=== PATIENT | female | born 1975 | race Caucasian/White ===

== ENCOUNTER → 2017-09-18 | Outpatient (CLI) | payer OTHER ==
[2017-09-18 15:35] LABS: BILIRUBIN,URINE NEGATIVE (NEG); CLARITY,URINE CLEAR; COLOR,URINE YELLOW; GLUCOSE,URINE NEGATIVE (NEG); NITRITE,URINE NEGATIVE (NEG); PROTEIN,URINE NEGATIVE (NEG-TRACE); UROBILINOGEN,URINE 0.2 mg/dL (0.2 mg/dL)
[2017-09-18 15:48] LABS: ADD MAN DIFF? NO; BACTERIA,URINE 0 /HPF (0-FEW); RBC,URINE 0 /HPF (0-2); SQUAMOUS EPITHELIAL CELL,UR FEW /LPF; WBC,URINE 0 /HPF (0-4)
[2017-09-18 15:51] LABS: BASO % 0 % (0-3); EOS # 0.1 x10^3/uL (0.0-0.7); EOS % 3 % (0-3); HEMATOCRIT 39.8 % (36.0-47.0); HEMOGLOBIN 13.1 g/dL (12.0-15.5); LYMPH # 1.4 x10^3/uL (1.0-4.8); LYMPH % 28 % (24-48); MEAN CORPUSCULAR HEMOGLOBIN 30 pg (25-35); MEAN CORPUSCULAR HGB CONC 33 g/dL (31-37); MEAN CORPUSCULAR VOLUME 92 fL (79-100); MONO # 0.3 x10^3/uL (0.0-1.1); MONO % 5 % (0-9); NEUT # 3.3 x10^3uL (1.8-7.7); NEUT % 64 % (31-73); PLATELET COUNT 301 x10^3/uL (140-400); RED BLOOD COUNT 4.33 x10^6/uL (3.50-5.40); RED CELL DISTRIBUTION WIDTH 14.4 % (11.5-14.5); WHITE BLOOD COUNT 5.1 x10^3/uL (4.0-11.0)
[2017-09-18 16:13] LABS: ALBUMIN 3.9 g/dL (3.4-5.0); ALK PHOS 63 U/L (46-116); ALT (SGPT) 24 U/L (14-59); ANION GAP 10 (6-14); AST (SGOT) 21 U/L (15-37); BLOOD UREA NITROGEN 18 mg/dL (7-20); BUN/CREATININE RATIO 26 (6-20); CALCIUM 9.3 mg/dL (8.5-10.1); CARBON DIOXIDE 27 mmol/L (21-32); CHLORIDE 103 mmol/L (98-107); CREATININE 0.7 mg/dL (0.6-1.0); GFR 92.7; GLUCOSE 88 mg/dL (70-99); POTASSIUM 4.4 mmol/L (3.5-5.1); SODIUM 140 mmol/L (136-145); TOTAL BILIRUBIN 0.3 mg/dL (0.2-1.0); TOTAL PROTEIN 7.7 g/dL (6.4-8.2)
== END | disposition home or self-care (01) ==
LOC: SURGPAT 14:39
DX: Z01.818 Encounter for other preprocedural examination (principal)
CPT/HCPCS: 36415; 80053; 81001; 85025

== ENCOUNTER 2017-09-26 06:16 | Observation (INO) | payer OTHER ==
[~2017-09-26 06:16] MED LIST: ESTROGENS, CONJ VAGINAL CREAM 30GM TUBE.; METHYLENE BLUE 1% 10 ML VIAL.
[2017-09-26] MEDS ORDERED: ONDANSETRON PF 4 MG/2 ML VIAL. IV ×2 (07:00→09:45)
[2017-09-26] MEDS ORDERED: HYDROmorphone 2 MG/ML VIAL IV (07:00)
[2017-09-26] MEDS ORDERED: MORPHINE SULFATE 4 MG/ML DISP.SYRIN. IV (07:00)
[2017-09-26] MEDS ORDERED: LIDOCAINE 1% PF 2 ML VIAL. ID (07:00)
[2017-09-26] MEDS ORDERED: fentaNYL PF VIAL 100 MCG/2 ML VIAL IV (07:00)
[2017-09-26] MEDS ORDERED: PROCHLORPERAZINE 10 MG/2 ML VIAL. IV (07:00)
[2017-09-26 07:05] LABS: NEG OBC UR NEG; POS OBC UR POS; U PREG PATIENT NEGATIVE (NEG)
[2017-09-26] MEDS: IV RINGERS,LACTATED 1000ML 1,000 ML IV (07:05)
[2017-09-26] MEDS: SCOPOLAMINE 1.5MG PATCH. TD (07:06)
[2017-09-26] MEDS ORDERED: fentaNYL PF VIAL 100 MCG/2 ML VIAL ×2 (07:11→09:12)
[2017-09-26] MEDS ORDERED: GLYCOPYRROLATE 1 MG/5 ML VIAL. (07:11)
[2017-09-26] MEDS ORDERED: KETAMINE HCL 500 MG/10 ML VIAL. (07:11)
[2017-09-26] MEDS ORDERED: ROCURONIUM 100 MG/10 ML VIAL. (07:11)
[2017-09-26] MEDS ORDERED: NEOSTIGMINE 10 MG/10 ML VIAL. (07:11)
[2017-09-26] MEDS ORDERED: MIDAZOLAM HCL/PF 2 MG/2 ML VIAL. (07:12)
[2017-09-26] MEDS ORDERED: DEXAMETHASONE SOD PHOS 20 MG/5 ML VIAL. (07:13)
[2017-09-26] MEDS ORDERED: ONDANSETRON PF 4 MG/2 ML VIAL. (07:13)
[2017-09-26] MEDS ORDERED: diphenhydrAMINE 50 MG/ML VIAL (07:13)
[2017-09-26] MEDS ORDERED: PROPOFOL 20 ML IV (07:13)
[2017-09-26] MEDS ORDERED: PHENYLEPHRINE 10 MG/ML VIAL. (07:55)
[2017-09-26] MEDS ORDERED: ISOFLURANE 16 TO 30 MINUTES. IH ×2 (07:57)
[2017-09-26] MEDS ORDERED: ceFAZolin 2GM PREMIX 2 GM/50 ML BAG IV (08:00)
[2017-09-26] MEDS: BUPIVACAINE-EPI 0.25%-1:200000 50 ML VIAL. (08:05)
[2017-09-26] MEDS ORDERED: FAMOTIDINE 20 MG/2 ML VIAL (08:28)
[2017-09-26] MEDS ORDERED: NON FORMULARY ITEM (Dextroamphetamine/Amphetamine (Adderall 20 Mg Tablet) 20 MG) PO (09:00)
[2017-09-26] MEDS ORDERED: diphenhydrAMINE HCL 25 MG CAPSULE PO (09:45)
[2017-09-26] MEDS ORDERED: ZOLPIDEM 5 MG TABLET. PO (09:45)
[2017-09-26] MEDS ORDERED: NALOXONE 0.4 MG/ML VIAL. IV (09:45)
[2017-09-26] MEDS ORDERED: MAG HYDROX/ALUMINUM HYD/SIMETH 30 ML ORAL.SUSP PO (09:45)
[2017-09-26] MEDS ORDERED: 0.9 % SODIUM CHLORIDE 10 ML DISP.SYRIN. IV (09:45)
[2017-09-26] MEDS ORDERED: CALCIUM CARBONATE 500 MG TAB.CHEW PO (09:45)
[2017-09-26] MEDS ORDERED: SIMETHICONE 80 MG TAB.CHEW PO (09:45)
[2017-09-26] MEDS ORDERED: LACTULOSE 20 GM/30 ML SOLUTION. PO (09:45)
[2017-09-26] MEDS ORDERED: MAGNESIUM HYDROXIDE 2,400 MG/30 ML ORAL.SUSP. PO (09:45)
[2017-09-26] MEDS ORDERED: diphenhydrAMINE 50 MG/ML VIAL IV (09:45)
[2017-09-26] MEDS ORDERED: oxyCODONE/APAP 5/325 1 TAB TABLET PO (09:45)
[2017-09-26] MEDS: fentaNYL PF VIAL 100 MCG/2 ML VIAL IV ×2 (10:09→10:34)
[2017-09-26] MEDS: KETOROLAC 30 MG/ML INJ. IV (11:26)
[2017-09-26] MEDS: MORPHINE SULFATE 4 MG/ML DISP.SYRIN. IV (11:53)
[2017-09-26] MEDS: HYDROcodone/APAP 5/325MG 1 TAB TABLET PO ×2 (15:18→21:28)
[2017-09-27 06:38] LABS: HEMATOCRIT 35.7 % (36.0-47.0)
[2017-09-27 07:07] LABS: ANION GAP 4 (6-14); BLOOD UREA NITROGEN 15 mg/dL (7-20); CARBON DIOXIDE 31 mmol/L (21-32); CHLORIDE 107 mmol/L (98-107); CREATININE 0.9 mg/dL (0.6-1.0); GFR 69.3; GLUCOSE 86 mg/dL (70-99); SODIUM 142 mmol/L (136-145)
== END 2017-09-27 12:39 | disposition home or self-care (01) ==
LOC: SURG 06:16 → 3 NORTH 09:50
DX: N85.2 Hypertrophy of uterus (principal); N85.4 Malposition of uterus; N72 Inflammatory disease of cervix uteri; N80.0 Endometriosis of uterus; N83.8 Other noninflammatory disorders of ovary, fallopian tube and broad ligament
CPT/HCPCS: 36415; 80048; 81025; 85014; 86850; 86900; 86901; 88307; 96374; 96375; G0378; G0379; J0690; J1100; J1200; J1885; J2250; J2270; J2405; J2704; J2710; J3010; J3490; Q9968; S0028